=== PATIENT | female | born 1980 | race Caucasian/White ===

== ENCOUNTER 2017-06-01 03:18 | Emergency (ER) | payer OTHER ==
[2015-09-28 13:28] VITALS: BMI 26.5
[~2017-06-01 03:18] MED LIST: ACETAMINOPHEN325 MG PO; AMBIEN5 MG PO; CELEXA20 MG PO; CIPRO250 MG PO; COUMADIN2.5 MG; COUMADIN3 MG PO; COUMADIN5 MG PO; COUMADIN7.5 MG PO; FERROUS SULFAT325 MG PO; HYDROCODON-ACE1 EAC7 PO; LISINOPRIL-HCTZ1 T13 PO; MEDROL DOSE PACK4 MG PO; MULTIPLE VITAMI1 TA1 PO; NORVASC2.5 MG PO; PRINIVIL20 MG PO; SODIUM BICARBO650 MG PO; XANAX1 MG PO
[2017-06-01 04:23] LABS: APPEARANCE CLEAR (CLEAR); BILIRUBIN NEGATIVE (NEGATIVE); COLOR YELLOW (YELLOW); GLUCOSE NEGATIVE (NEGATIVE); KETONE NEGATIVE (NEGATIVE); LEUKOCYTE ESTERASE 1+ (NEGATIVE); NITRITE NEGATIVE (NEGATIVE); PROTEIN 2+ mg/dL (NEGATIVE); UROBILINOGEN NORMAL (NORMAL)
[2017-06-01 04:26] LABS: BACTERIA FEW /hpf (NONE SEEN); EPITHELIAL CELLS 0-5 /hpf (0-5); RED CELLS - URINE 0-5 /hpf (0-5); WHITE CELLS - URINE 0-5 /hpf (0-5)
[2017-06-01 04:40] LABS: BASOPHILS 0.3 % (0-2); EOSINOPHILS 4.2 % (0-7); HEMATOCRIT 33.3 % (36.0-48.0); IMMATURE GRANULOCYTES 0.3 % (0-5); MCV 96.8 fL (80.0-100.0); MEAN PLATELET VOLUME 10.6 fL (7.4-10.4); MONOCYTES 6.9 % (2-11); NEUTROPHILS 70.3 % (40-80); RBC 3.44 10x6/uL (4.00-5.40); RDW 12.9 % (11.5-14.5); WBC 7.8 10x3/uL (4.8-10.8)
[2017-06-01 04:49] LABS: PLATELET COUNT 131 10x3/uL (130-400)
[2017-06-01 04:53] LABS: HCG SERUM NEGATIVE (NEGATIVE)
[2017-06-01 04:58] LABS: ALBUMIN 2.8 g/dL (3.4-5.0); ANION GAP 11.9 mmol/L (8-16); BILIRUBIN - TOTAL 0.38 mg/dL (0.2-1.3); CALCIUM 8.1 mg/dL (8.5-10.1); CARBON DIOXIDE 27.4 mmol/L (21.0-32.0); CREATININE - SERUM 3.8 mg/dL (0.6-1.3); MAGNESIUM - SERUM 1.3 mg/dL (1.8-2.4); POTASSIUM - SERUM 3.3 mmol/L (3.5-5.1); PROTEIN - SERUM 6.4 g/dL (6.4-8.2)
== END 2017-06-01 06:23 | disposition home or self-care (01) ==
LOC: D.ER 03:18
PROVIDERS: Emergency Medicine
DX: R10.30 Lower abdominal pain, unspecified (principal); R11.10 Vomiting, unspecified; D64.9 Anemia, unspecified; N17.9 Acute kidney failure, unspecified; E83.42 Hypomagnesemia; E87.6 Hypokalemia; I10 Essential (primary) hypertension; F17.200 Nicotine dependence, unspecified, uncomplicated

== ENCOUNTER 2017-06-27 05:10 | Day surgery (SDC) | payer OTHER ==
[2017-06-26 16:47] LABS: APTT 27.7 SECONDS (22.8-39.4); INR 0.99 (0.85-1.17)
[2017-06-26 16:50] LABS: ANION GAP 12.7 mmol/L (8-16); CALCIUM 8.3 mg/dL (8.5-10.1); CARBON DIOXIDE 27.2 mmol/L (21.0-32.0); POTASSIUM - SERUM 3.9 mmol/L (3.5-5.1)
[2017-06-26 17:31] LABS: BASOPHILS 0.3 % (0-2); EOSINOPHILS 8.1 % (0-7); HEMATOCRIT 36.9 % (36.0-48.0); IMMATURE GRANULOCYTES 0.2 % (0-5); LYMPHOCYTES 25.1 % (15-50); MCH 31.6 pg (26.0-34.0); MCHC 32.5 g/dL (31.0-37.0); MCV 97.1 fL (80.0-100.0); MEAN PLATELET VOLUME 10.5 fL (7.4-10.4); MONOCYTES 5.2 % (2-11); NEUTROPHILS 61.1 % (40-80); RDW 12.8 % (11.5-14.5); WBC 6.3 10x3/uL (4.8-10.8)
[2017-06-26 17:41] LABS: PLATELET COUNT 187 10x3/uL (130-400)
[~2017-06-27] VITALS: Ht 190.5 cm; Wt 84.4 kg
--- NOTE | ~2017-06-27 | OP ---
PATIENT NAME: CHARLIE MILLER MEDICAL RECORD: [id number] :82 LOCATION:[facility] ADMISSION DATE: SURGEON: CLAUDE COSTELLO MD DATE OF OPERATION: 06/27/2017 REFERRING PHYSICIAN: Andrew Miller MD PREOPERATIVE DIAGNOSIS: Polycystic kidney disease stage V secondary to polycystic kidneys. POSTOPERATIVE DIAGNOSIS: Polycystic kidney disease stage V secondary to polycystic kidneys. OPERATION PERFORMED: Creation of a Nando-type brachiobasilic AV fistula in the left arm as first in a planned series of 2 operations to construct a translocated basilic vein fistula. SURGEON: Claude Costello MD ANESTHESIA: General with LMA per ANALYST PROGRAMMER. PREOPERATIVE NOTE: Ms. Miller is a 37-year-old white female patient from [place]. She has polycystic kidney disease and will need to begin dialysis in the next few months most likely. Her mother is a long-term hemodialysis patient of mine. Ms. Miller is brought to the operating room at this time for creation of a fistula. She has small veins generally and I anticipate creating a translocated basilic vein fistula in the left arm. DESCRIPTION OF PROCEDURE: Under general anesthesia in the supine position, the patient was prepped and draped in sterile manner. I used a Kishore drain for proximal venous tourniquet and applied nitroglycerin paste and examined the arm with ultrasound. I noted the basilic vein to be very satisfactory vein, about 5 mm in diameter or more for use for this fistula. I made an incision then on the medial aspect of the arm directly over the vein as guided by ultrasound and extended the incision slightly distally down to but not below the antecubital level. The basilic vein was exposed and multiple tributaries were divided between Vicryl ligatures and clips and the vein was prepared for an anastomosis. It was treated with topical papaverine. The brachial artery, which was underlying and nearby, was exposed and controlled with Silastic loops. The artery was occluded. The vein was opened, prepared for anastomosis, and flushed with heparinized saline. The artery was opened for about 8 mm and was flushed proximally and distally with heparinized saline. A [id number] anastomosis was then performed with running 7-0 Prolene, after which the distal vein were multiply ligated with Hemoclips, leaving in effect an end-to-side fistula. With release of the occluding loops and clamps, excellent flow was established. The suture line was generally hemostatic, but required the use of a small amount of Fibrillar hemostatic material to be completely hemostatic. The wound was irrigated and infiltrated with 1% lidocaine with epinephrine and 0.25% Marcaine plain. The wound was then closed without the use of a drain, approximating the subcutaneous tissues with interrupted inverted 3-0 Vicryl and the skin with running intracuticular 4-0 Monocryl and Dermabond glue. Dressings of Maxorb Ag, Tegaderm, and Cavilon skin prep were applied. She was awakened and taken to the recovery room with good fistula. The patient had a preserved palpable radial artery pulse and pulsatile polyphasic arterial flow signals in the radial artery at the wrist as well. OPERATIVE REPORT [id number] CHARLIE MILLER There was no blood loss during the procedure. No drain was used. All sponges, instruments, and needles were accounted for. No surgical specimen was submitted. She will be discharged to home today with a prescription for #20 [place] 5 mg tablets. She can take one p.o. as often as every 4 hours p.r.n. for pain. I will plan to see her back in my office next week. She can leave the original waterproof operative dressing intact until that time and I will remove the dressing in the office. I will plan to return her to the operating room in 2-3 weeks for the second stage and final creation of the translocated basilic vein AV fistula. TRANSINT:[id number] Voice Confirmation ID: [id number] DOCUMENT ID: [id number] CLAUDE COSTELLO MD CC: ANDREW MILLER MD [id number] DICTATION DATE: 06/27/17 1025 INSULATION INSTALLER: 06/27/[address] [facility] [address] [id number]
[~2017-06-27 05:10] MED LIST changes: +ZOFRAN4 MG PO
[2017-06-27 06:21] VITALS: Ht 190.5 cm; Wt 84.4 kg
[2017-06-27 07:13] LABS: HCG URINE NEGATIVE (NEGATIVE)
[2017-06-27] MEDS ORDERED: HYDROCODON-ACE1 EAC7 PO (10:09)
== END 2017-06-27 11:55 | disposition home or self-care (01) ==
LOC: D.OPS 05:10 → D.PAN 08:00 → D.OPS 08:00
PROVIDERS: Internal Medicine Nephrology; Surgery
DX: N18.5 Chronic kidney disease, stage 5 (principal); N28.1 Cyst of kidney, acquired; Z79.01 Long term (current) use of anticoagulants; F17.200 Nicotine dependence, unspecified, uncomplicated; Z01.812 Encounter for preprocedural laboratory examination

== ENCOUNTER 2017-07-25 06:09 | Day surgery (SDC) | payer MEDICAID ==
[2017-07-24 14:10] LABS: BASOPHILS 0.5 % (0-2); HEMATOCRIT 36.6 % (36.0-48.0); HEMOGLOBIN 11.4 g/dL (12-16); IMMATURE GRANULOCYTES 0.2 % (0-5); LYMPHOCYTES 23.3 % (15-50); MCH 30.6 pg (26.0-34.0); MCHC 31.1 g/dL (31.0-37.0); MCV 98.4 fL (80.0-100.0); MEAN PLATELET VOLUME 10.5 fL (7.4-10.4); RBC 3.72 10x6/uL (4.00-5.40); RDW 12.4 % (11.5-14.5); WBC 5.8 10x3/uL (4.8-10.8)
[2017-07-24 14:11] LABS: PLATELET COUNT 143 10x3/uL (130-400)
[2017-07-24 14:33] LABS: ANION GAP 17.7 mmol/L (8-16); CALCIUM 9.1 mg/dL (8.5-10.1); CARBON DIOXIDE 22.8 mmol/L (21.0-32.0); CREATININE - SERUM 5.4 mg/dL (0.6-1.3); POTASSIUM - SERUM 3.5 mmol/L (3.5-5.1)
[2017-07-24 14:36] LABS: APTT 27.2 SECONDS (22.8-39.4); INR 1.05 (0.85-1.17); PROTIME 13.6 SECONDS (11.6-15.0)
[2017-07-25 07:14] VITALS: BP 142/79; BMI 25.0
[2017-07-25 07:40] LABS: HCG URINE NEGATIVE (NEGATIVE)
[2017-07-25] MEDS ORDERED: HYDROCODON-ACE1 EAC7 PO (11:08)
--- NOTE | 2017-07-25 12:21 | NUR ---
IV DC WITH CATHER TIP INTACT
--- NOTE | 2017-07-28 08:26 | OP ---
PATIENT NAME: CHARLIE MILLER MEDICAL RECORD: [id number] :82 LOCATION:[facility] ADMISSION DATE: SURGEON: CLAUDE COSTELLO MD DATE OF OPERATION: 07/25/2017 PREOPERATIVE DIAGNOSIS: Chronic kidney disease V status post creation of a left brachiobasilic AV fistula. POSTOPERATIVE DIAGNOSIS: Chronic kidney disease V status post creation of a left brachiobasilic AV fistula. OPERATION PERFORMED: Creation of a left brachial artery to translocated basilic vein AV fistula as a second stage of 2 planned operations. ANESTHESIA: General with an LMA per STREET LIGHT SERVICER HELPER. SURGEON: Claude Costello MD REFERRING PHYSICIAN: Andrew Desai MD PREOPERATIVE NOTE: Ms. Miller is a very nice 37-year-old white female patient from [place], [place]. Her primary care physician is Dr. Pace. She has polycystic kidney disease and has reached CKD stage V, it is anticipated that she will require dialysis. She was referred to me for creation of a fistula. She had small veins and about 3 weeks ago, I created a left brachial artery to basilic Nando type AV fistula in order to prepare and dilate the basilic vein for delayed creation of a translocated basilic fistula. She has done well with that and has returned to the operating room now for the planned second stage operation. Under general anesthesia in supine position, the patient was prepped and draped in sterile manner. I examined her with ultrasound and noted the basilic vein to be very nicely dilated over its course from the arterial anastomosis to the axilla and a long incision was made along the medial aspect of the arm from axilla to the elbow and the vein was fully mobilized from the arterial anastomosis to the axillary vein. The vein was treated with topical papaverine and a surgical marker used to make a stripe for orientation on the upside of the vein. The vein was then clamped and transected and beveled at a point approximately 2 cm proximal to the arterial anastomosis. The vein was flushed with heparinized saline and a vascular clamp used proximally to occlude it. The brachial artery anastomosis was flushed with heparinized saline and the vein again clamped. The vein was placed in an anterolateral subcutaneous tunnel using a Lianet tunneling device. It was very carefully and precisely anastomosed end-to-end to the stump of the vein at the arterial anastomosis. This was done with running 7-0 Prolene. Upon completion of the anastomosis and release of the occluding clamps, tremendous excellent flow was immediately established in it and the suture line was hemostatic after a brief period of compression with dry gauze and use of some fibrillar hemostatic material. The patient did tend to ooze and bleed throughout the operation from all the surfaces and I did administer 20 mcg of DDAVP at the end of the operation, which did contribute to hemostasis. The wound was irrigated with Ancef and gentamicin solution, it was irrigated and infiltrated with 0.25% Marcaine without epinephrine and the wound was closed without the use of a drain approximating subcutaneous tissues with interrupted inverted 3-0 Vicryl and the skin was closed with running intracuticular 4-0 Monocryl and Dermabond glue. The long OPERATIVE REPORT [id number] CHARLIE MILLER incision was dressed with Maxorb Ag, Tegaderm, and Cavilon skin prep. The patient stable, awakened and taken to the recovery room. Blood loss I estimated at about 10 perhaps 15 cc. All sponges, instruments and needles were accounted for. No drain was used and no surgical specimen was submitted for histopathology. PLAN: The patient will go home today if she remains comfortable and there is no other apparent reason that she might need to stay overnight. I will plan to see her back in my office Monday of next week. She is given a prescription for 20 Bl[place] 5/325 tablets, she can take one every 4 hours p.r.n. for pain if needed. She can leave the original operative dressing intact until she returns to see me in my office Monday. She is to continue all of her previous home medications. TRANSINT:[id number] Voice Confirmation ID: [id number] DOCUMENT ID: [id number] CLAUDE COSTELLO MD at 0826 CC: ANDREW DESAI MD [id number] DICTATION DATE: 07/25/17 1123 PLASTERER SPRAY GUN: 07/25/17 1212 [facility] 07/25/17 [facility] [address] [place] [address]
== END 2017-07-25 12:40 | disposition home or self-care (01) ==
LOC: D.OPS 06:09 → D.PAN 08:00 → D.OPS 08:00
PROVIDERS: Internal Medicine Nephrology; Surgery
DX: N18.5 Chronic kidney disease, stage 5 (principal); Q61.3 Polycystic kidney, unspecified; Z01.812 Encounter for preprocedural laboratory examination

== ENCOUNTER → 2017-11-30 12:41 | Outpatient (CLI) | payer MEDICAID | END | disposition home or self-care (01) | LOC: D.CT 12:41 | DX: I12.0 Hypertensive chronic kidney disease with stage 5 chronic kidney disease or end stage renal disease (principal); N18.5 Chronic kidney disease, stage 5; N25.0 Renal osteodystrophy; D63.1 Anemia in chronic kidney disease; Z68.24 Body mass index [BMI] 24.0-24.9, adult; R10.12 Left upper quadrant pain; R31.9 Hematuria, unspecified ==

== ENCOUNTER → 2018-05-16 12:37 | Outpatient (CLI) | payer MEDICAID | END | disposition home or self-care (01) | LOC: D.ECHO 12:37 | DX: N18.5 Chronic kidney disease, stage 5 (principal); Q61.3 Polycystic kidney, unspecified; R31.9 Hematuria, unspecified; R01.1 Cardiac murmur, unspecified ==